=== PATIENT | male | born 1985 | race Caucasian/White ===

== ENCOUNTER → 2022-01-12 | Outpatient (CLI) | payer BC ==
[~2022-01-12] MED LIST: AMOCLA875 PO
== END | disposition home or self-care (01) ==
LOC: LAB SHORT 09:23 → LAB 09:23
DX: L03.011 Cellulitis of right finger (principal)
CPT/HCPCS: 87070; 87205

== ENCOUNTER → 2022-12-17 | Outpatient (CLI) | payer BC | LOC: LAB SHORT 15:26 → LAB 15:26 | DX: L08.0 Pyoderma (principal) | CPT/HCPCS: 87070; 87205 ==

== ENCOUNTER → 2023-01-01 | Outpatient (CLI) | payer BC | END | disposition home or self-care (01) | LOC: LAB SHORT 12:01 → PLD 12:01 | DX: D48.5 Neoplasm of uncertain behavior of skin (principal) | CPT/HCPCS: 88305; 88312 ==